=== PATIENT | female | born 1990 | race Two or more races ===

== ENCOUNTER 2019-12-17 09:03 | Inpatient (IN) | payer OTHER ==
[~2019-12-17] VITALS: Ht 160 cm; Wt 80.0 kg
[2019-12-17] MEDS ORDERED: ACET650S21 PO (09:42)
[2019-12-17] MEDS ORDERED: NITR100C PO (09:43)
[2019-12-17] MEDS ORDERED: ONDANSETRON 2MG/ML, 2ML IVPush ONE (10:00)
[2019-12-17] MEDS ORDERED: SODIUM CHLORIDE FLUSH 10ML SYR IVF ONE (10:00)
[2019-12-17] MEDS ORDERED: SODIUM CHLORIDE 0.9% 1,000ML IVBOLUS ONE (10:00)
[2019-12-17] MEDS ORDERED: ONDANSETRON 2MG/ML, 2ML ONE (10:01)
--- NOTE | 2019-12-17 10:03 | NUR ---
PT ON HOSPITAL GOWN. LABS AND BLOOD CULTURES DRAWN. BEDSIDE US BEING DONE AT THIS TIME. PT HAS URINE CUP FOR ORDERED UA
[2019-12-17 10:05] LABS: MEAN CORPUSCULAR HEMOGLOBIN 29.3 pg (27.0-34.8); MEAN CORPUSCULAR HGB CONC 33.5 g/dL (32.4-35.8); MEAN CORPUSCULAR VOLUME 87.4 fL (80-100); MEAN PLATELET VOLUME 8.8 fL (7.4-10.4); PLATELET COUNT 269 x10^3/uL (130-400); RED BLOOD COUNT 4.47 x10^6/uL (3.82-5.3); RED CELL DISTRIBUTION WIDTH 13.7 % (9.6-15.2)
[2019-12-17 10:28] LABS: MD YES
[2019-12-17 10:29] LABS: BAND#(MANUAL) 2.57 x10^3/uL; BANDS%(MANUAL) 9 % (0-7); LYMPH#(MANUAL) 1.14 x10^3/uL (1-3.4); LYMPHS% (MANUAL) 4 % (22-44); MONOS#(MANUAL) 2.29 x10^3/uL (0.3-2.7); MONOS% (MANUAL) 8 % (2-9); SEG#(MANUAL) 22.59 x10^3/uL (1.8-6.8); SEGS% (MANUAL) 79 % (42-75)
[2019-12-17 10:30] LABS: <PLATELET ESTIMATE> ADEQUATE; <PLT MORPHOLOGY> NORMAL PLT MORPH; <RBC MORPHOLOGY> NORMAL
[2019-12-17] MEDS ORDERED: CEFTRIAXONE PMX 1GM/50ML 50 ML IV ONE (10:30)
[2019-12-17] MEDS ORDERED: CEFTRIAXONE PMX 1GM/50ML 50 ML ONE (10:34)
[2019-12-17 10:39] LABS: ALANINE AMINOTRANSFERASE 35 U/L (12-78); ALBUMIN 3.1 g/dL (3.4-5.0); ANION GAP 11 mmol/L (5-15); CALCIUM 9.3 mg/dL (8.5-10.1); CHLORIDE 101 mmol/L (98-107)
[2019-12-17] MEDS ORDERED: MORPHINE SULFATE 4 MG/ML, 1ML ONE (10:41)
[2019-12-17 10:51] LABS: MICROSCOPIC INDICATED
[2019-12-17 10:54] LABS: ALKALINE PHOSPHATASE 89 U/L (45-117); BILIRUBIN,TOTAL 0.8 mg/dL (0.2-1.0); CREATININE 1.04 mg/dL (0.55-1.02)
[2019-12-17] MEDS ORDERED: MORPHINE SULFATE 4 MG/ML, 1ML IVPush ONE (11:00)
--- NOTE | 2019-12-17 11:17 | NUR ---
Bedside report received from DEVON Colin. Patient resting in gurney with no questions or complaints at this time.
[2019-12-17] MEDS ORDERED: HYDROmorphone 1 MG/ML, 1ML INJ ONE (11:46)
[2019-12-17] MEDS ORDERED: HYDROmorphone 2 MG/ML, 1ML IVPush PRN (12:00)
[2019-12-17] MEDS: CEFTRIAXONE PMX 1GM/50ML 50 ML IV SCH ×2 (12:00→23:33)
[2019-12-17] MEDS ORDERED: LABETALOL 5MG/ML, 20ML IVPush PRN (12:00)
[2019-12-17] MEDS ORDERED: BISACODYL 10 MG SUPP PR PRN (12:00)
[2019-12-17] MEDS ORDERED: POLYETHYLENE GLYCOL 17 GM PACKET PO PRN (12:00)
[2019-12-17] MEDS ORDERED: hydrALAzine 20 MG/ML, 1ML IVPush PRN (12:00)
--- NOTE | 2019-12-17 12:04 | NUR ---
Plan of care updated with patient and family member, questions answered, call griffin within reach. Patient declines meal tray at this time. Water provided as requested.
[2019-12-17 12:14] LABS: FREE T4 (FREE THYROXINE) 1.39 ng/dL (0.76-1.46)
--- NOTE | 2019-12-17 13:50 | NUR ---
Patient reports improvement in symptoms and pain. No questions or concerns at this time.
--- NOTE | 2019-12-17 13:54 | NUR ---
Report called to DEVON Montero.
[2019-12-17 15:03] VITALS: BP 104/70
[2019-12-17] MEDS: morphine SULFATE 10 MG/ML, 1ML IVPush PRN ×2 (16:09→22:42)
[2019-12-17] MEDS: ONDANSETRON 2MG/ML, 2ML IVPush PRN (16:10)
[2019-12-17] MEDS: NS + 20MEQ KCL 1,000 ML IV SCH ×2 (16:32→22:44)
[2019-12-17 17:33] VITALS: BP 103/66
[2019-12-17] MEDS: ACETAMINOPHEN 325 MG TABLET PO PRN (17:37)
[2019-12-17] MEDS ORDERED: ACETAMINOPHEN 500 MG TABLET PO ONE (19:00)
[2019-12-17] MEDS: HEPARIN 5,000 UNITS/ML, 1ML SQ SCH (19:36)
[2019-12-17 19:45] VITALS: BP 96/62
[2019-12-17] MEDS: TRAZODONE 50MG TABLET PO PRN ×2 (22:35→23:46)
[2019-12-18 01:56] VITALS: BP 99/65
[2019-12-18] MEDS: HEPARIN 5,000 UNITS/ML, 1ML SQ SCH ×3 (03:36→20:26)
[2019-12-18] MEDS: OXYcodone IR 5MG TABLET PO PRN ×3 (03:37→22:49)
[2019-12-18] MEDS: ONDANSETRON 2MG/ML, 2ML IVPush PRN ×2 (03:46→16:46)
[2019-12-18] MEDS: ACETAMINOPHEN 325 MG TABLET PO PRN ×3 (03:51→23:54)
[2019-12-18] MEDS: NS + 20MEQ KCL 1,000 ML IV SCH ×3 (05:09→20:26)
[2019-12-18 05:42] LABS: MEAN CORPUSCULAR HEMOGLOBIN 29.1 pg (27.0-34.8); MEAN CORPUSCULAR HGB CONC 33.2 g/dL (32.4-35.8); MEAN CORPUSCULAR VOLUME 87.5 fL (80-100); MEAN PLATELET VOLUME 9.2 fL (7.4-10.4); PLATELET COUNT 229 x10^3/uL (130-400); RED BLOOD COUNT 3.74 x10^6/uL (3.82-5.3); RED CELL DISTRIBUTION WIDTH 14.1 % (9.6-15.2)
[2019-12-18 05:46] LABS: CHLORIDE 105 mmol/L (98-107)
[2019-12-18 06:06] LABS: ALANINE AMINOTRANSFERASE 70 U/L (12-78); ALBUMIN 2.3 g/dL (3.4-5.0); ALKALINE PHOSPHATASE 157 U/L (45-117); ANION GAP 9 mmol/L (5-15); BILIRUBIN,TOTAL 0.8 mg/dL (0.2-1.0); CALCIUM 8.4 mg/dL (8.5-10.1); CREATININE 0.68 mg/dL (0.55-1.02); TOTAL PROTEIN 6.5 g/dL (6.4-8.2)
[2019-12-18 06:11] LABS: BASOPHILS # (AUTO) 0.01 x10^3/uL (0-0.1); BASOPHILS % (AUTO) 0 % (0-1); EOSINOPHILS % (AUTO) 0 % (1-7); LYMPHOCYTES # (AUTO) 1.17 x10^3/uL (1-3.4); LYMPHOCYTES % (AUTO) 6 % (22-44); MD SCAN; MONOCYTES # (AUTO) 1.44 x10^3/uL (0.2-0.8); MONOCYTES % (AUTO) 7 % (2-9); NEUTROPHILS # (AUTO) 17.52 x10^3/uL (1.8-6.8); NEUTROPHILS % (AUTO) 87 % (42-75)
[2019-12-18 06:44] VITALS: BP_SYST 87; BP_SYST 99; BP_DIAS 51; BP_DIAS 65
[2019-12-18] MEDS: PANTOPRAZOLE 40 MG IV IVPush SCH (08:51)
[2019-12-18 11:48] VITALS: BP 98/65
[2019-12-18] MEDS: CEFTRIAXONE PMX 1GM/50ML 50 ML IV SCH ×2 (12:05→23:54)
[2019-12-18 16:12] VITALS: BP 112/72
[2019-12-18 19:22] VITALS: BP 95/61
[2019-12-18] MEDS: TRAZODONE 50MG TABLET PO PRN (23:54)
[2019-12-19 00:03] VITALS: BP 93/55
[2019-12-19] MEDS: NS + 20MEQ KCL 1,000 ML IV SCH (04:28)
[2019-12-19] MEDS: HEPARIN 5,000 UNITS/ML, 1ML SQ SCH ×3 (04:28→21:10)
[2019-12-19] MEDS: OXYcodone IR 5MG TABLET PO PRN ×2 (04:33→18:04)
[2019-12-19 05:39] LABS: ANION GAP 7 mmol/L (5-15); CALCIUM 8.4 mg/dL (8.5-10.1); CHLORIDE 108 mmol/L (98-107); CREATININE 0.64 mg/dL (0.55-1.02)
[2019-12-19 05:56] LABS: HCT (SEDRATE) 32.2 % (34.6-47.8)
[2019-12-19 05:57] LABS: BASOPHILS # (AUTO) 0.03 x10^3/uL (0-0.1); BASOPHILS % (AUTO) 0 % (0-1); EOSINOPHILS # (AUTO) 0.02 x10^3/uL (0-0.4); EOSINOPHILS % (AUTO) 0 % (1-7); LYMPHOCYTES # (AUTO) 1.82 x10^3/uL (1-3.4); LYMPHOCYTES % (AUTO) 16 % (22-44); MD NO; MEAN CORPUSCULAR HEMOGLOBIN 28.7 pg (27.0-34.8); MEAN CORPUSCULAR HGB CONC 32.8 g/dL (32.4-35.8); MEAN CORPUSCULAR VOLUME 87.5 fL (80-100); MEAN PLATELET VOLUME 9.1 fL (7.4-10.4); MONOCYTES # (AUTO) 0.82 x10^3/uL (0.2-0.8); MONOCYTES % (AUTO) 7 % (2-9); NEUTROPHILS # (AUTO) 8.69 x10^3/uL (1.8-6.8); NEUTROPHILS % (AUTO) 76 % (42-75); PLATELET COUNT 239 x10^3/uL (130-400); RED BLOOD COUNT 3.68 x10^6/uL (3.82-5.3); RED CELL DISTRIBUTION WIDTH 14.5 % (9.6-15.2)
[2019-12-19] MEDS: PANTOPRAZOLE 40 MG IV IVPush SCH (08:07)
[2019-12-19] MEDS: ACETAMINOPHEN 325 MG TABLET PO PRN ×2 (08:23→15:30)
[2019-12-19 08:55] VITALS: BP 104/67
[2019-12-19] MEDS: CEFTRIAXONE PMX 1GM/50ML 50 ML IV SCH ×2 (12:54→23:45)
[2019-12-19 13:02] VITALS: BP 100/66
[2019-12-19 19:53] VITALS: BP 107/72
[2019-12-19] MEDS: SUMATRIPTAN 50 MG TABLET PO PRN (23:40)
[2019-12-20] MEDS: ONDANSETRON 2MG/ML, 2ML IVPush PRN (00:32)
[2019-12-20 00:43] VITALS: BP 109/76
[2019-12-20 06:08] LABS: BASOPHILS # (AUTO) 0.02 x10^3/uL (0-0.1); BASOPHILS % (AUTO) 0 % (0-1); EOSINOPHILS # (AUTO) 0.02 x10^3/uL (0-0.4); EOSINOPHILS % (AUTO) 0 % (1-7); LYMPHOCYTES # (AUTO) 1.61 x10^3/uL (1-3.4); LYMPHOCYTES % (AUTO) 20 % (22-44); MD NO; MEAN CORPUSCULAR HEMOGLOBIN 28.6 pg (27.0-34.8); MEAN CORPUSCULAR HGB CONC 32.9 g/dL (32.4-35.8); MEAN PLATELET VOLUME 8.6 fL (7.4-10.4); MONOCYTES # (AUTO) 0.83 x10^3/uL (0.2-0.8); MONOCYTES % (AUTO) 10 % (2-9); NEUTROPHILS # (AUTO) 5.54 x10^3/uL (1.8-6.8); NEUTROPHILS % (AUTO) 69 % (42-75); PLATELET COUNT 273 x10^3/uL (130-400); RED CELL DISTRIBUTION WIDTH 14.6 % (9.6-15.2)
[2019-12-20 06:12] LABS: ANION GAP 10 mmol/L (5-15); CALCIUM 8.8 mg/dL (8.5-10.1); CHLORIDE 105 mmol/L (98-107)
[2019-12-20] MEDS: HEPARIN 5,000 UNITS/ML, 1ML SQ SCH ×2 (06:14→14:00)
[2019-12-20] MEDS: SUMATRIPTAN 50 MG TABLET PO PRN (06:15)
[2019-12-20 06:19] LABS: CREATININE 0.66 mg/dL (0.55-1.02)
[2019-12-20 07:34] VITALS: BP 116/76
[2019-12-20] MEDS: PANTOPRAZOLE 40 MG IV IVPush SCH (07:35)
[2019-12-20] MEDS ORDERED: LEVOFLOXACIN 750 MG TABLET PO SCH (12:00)
[2019-12-20] MEDS ORDERED: LEVO750T26 PO (13:27)
[2019-12-20 13:39] VITALS: BP 106/73
== END 2019-12-20 17:52 | disposition home or self-care (01) | DRG 871 ==
LOC: ED 10:23 → EDIP 11:35 → SUATTDRO 11:37 → 3N 13:31
PROVIDERS: ADMIT Hospitalist; ATTEND Hospitalist
DX: A41.9 Sepsis, unspecified organism (principal); N17.0 Acute kidney failure with tubular necrosis; E87.1 Hypo-osmolality and hyponatremia; N10 Acute pyelonephritis; B96.20 Unspecified Escherichia coli [E. coli] as the cause of diseases classified elsewhere; E87.6 Hypokalemia; F12.90 Cannabis use, unspecified, uncomplicated; D72.829 Elevated white blood cell count, unspecified; Z90.49 Acquired absence of other specified parts of digestive tract; Z72.89 Other problems related to lifestyle
CPT/HCPCS: 36415; 70450; 74176; 76770; 80048; 80053; 81001; 83605; 83690; 84145; 84439; 84443; 84703; 85025; 85651; 86140; 87040; 87086; 87186; 96361; 96374; 99285; G0378; J0696; J1170; J1644; J2405; J3480; C9113; J2270; J7030